=== PATIENT | male | born 1950 | race Caucasian/White ===

== ENCOUNTER → 2023-08-13 12:11 | Outpatient (CLI) | payer OTHER, SELFPAY ==
--- NOTE | 2023-08-13 | DI.ECHO.S_ITS ---
[place]---------+ [facility] +---------+ : : [address] : : : : [id number] : : : : Phone: [phone]---------+ Echocardiogram Report + + :Name: EMIL FULLER Study Date: 08/13/2023 Height: 70 in : :[facility] ReadingLocation: Weight: 250 lb : : Gender: Male BSA: 2.3 m2 : :: 1950 Age: 73 yrs BP: 181/96 mmHg: :Reason For Study: General Screening : :Ordering Physician: Ivan, : :Willie Performed By: Audelia Robledo : :Referring: Willie Love : + + Interpretation Summary The study quality was technically difficult. The left ventricle is normal in size. The left ventricular ejection fraction is normal. The ejection fraction is estimated to be 65-70%. The right ventricular cavity is small. The right ventricular systolic function is normal. There is mild mitral regurgitation. There is mild aortic regurgitation. There is mild tricuspid regurgitation. The right ventricular systolic pressure is estimated to be at least 35 mmHg based on an estimated right atrial pressure of 3 mm Hg. The ascending aorta is mildly enlarged. BP: 181/96 mmHg Procedure: A two-dimensional transthoracic echocardiogram with color flow and Doppler was performed. The study quality was technically difficult. Most of the acoustic windows were suboptimal, but the best imaging was obtained from the apical window. The patient was in normal sinus rhythm during the exam. Left Ventricle: The left ventricle is normal in size. Proximal septal thickening is noted. There is no echo evidence for significant left ventricular outflow tract obstruction. There is no thrombus. The ejection fraction is estimated to be 65-70%. The left ventricular ejection fraction is normal. There are no focal wall motion abnormalities. MV E/A: 0.69 Med Peak E' Christos: 6.3 cm/sec E/E' med: 16.6. Right Ventricle: The right ventricular cavity is small. The right ventricular systolic function is normal. Atria: The left atrial size is normal. Right atrial size is normal. There is no Doppler evidence for an interatrial shunt. Mitral Valve: There is mild to moderate mitral annular calcification. Redundant elongated chordae are noted. There is mild mitral regurgitation. Aortic Valve: The aortic valve is not well visualized. There is mild aortic valve sclerosis. There is no aortic valve stenosis. There is mild aortic regurgitation. Tricuspid Valve: The tricuspid valve is normal. There is no tricuspid stenosis. There is mild tricuspid regurgitation. The right ventricular systolic pressure is estimated to be at least 35 mmHg based on an estimated right atrial pressure of 3 mm Hg. Pulmonic Valve: The pulmonic valve is not well visualized. There is no pulmonic valvular stenosis. There is no pulmonic valvular regurgitation. Great Vessels: The aortic root is normal size. The ascending aorta is mildly enlarged. The pulmonary artery is normal size. The IVC is of normal diameter and collapses greater than 50% with a sniff. This suggests a low right atrial pressure of 3 mm Hg. Pericardium/ Pleura There is a trivial pericardial effusion noted. There is an anterior echo-free space consistent with a fat pad. There are no echocardiographic indications of cardiac tamponade. There is no pleural effusion. MMode/2D Measurements & Calculations LVIDd: 5.8 cm LVOT diam: 1.9 cm LVIDs: 4.6 cm Ao root diam: 3.8 cm FS: 20.7 % asc Aorta Diam: 4.2 cm IVSd: 1.0 cm LVPWd: 0.90 cm LV pablo. diameter/BSA (cm/m^2): 2.5 LV sys. diameter/BSA (cm/m^2): 2.0 LA A2 area: 21.2 cm2 RA long axis: 6.1 cm LA A4 area: 18.3 cm2 RA area: 15.4 cm2 LA length (vol): 6.1 cm RA vol: 33.1 ml LA vol: 54.4 ml RA : 14.4 ml/m2 LA vol index: 23.7 ml/m2 IVC diam: 2.0 cm RVD1 (basal): 2.7 cm LVLs ap4: 6.8 cm LVLd ap2: 7.4 cm TAPSE_phl: 2.9 cm LVLs ap2: 6.5 cm Doppler Measurements & Calculations Ao V2 max: 166.0 cm/sec LVOT Max Christos: 136.3 cm/sec Ao V2 mean: 114.6 cm/sec LV V1 max P.4 mmHg Ao max P.0 mmHg LV V1 VTI: 27.5 cm Ao mean P.0 mmHg CHUY(I,D): 2.4 cm2 Ao V2 VTI: 32.1 cm CHUY(V,D): 2.3 cm2 sev ratio: 0.86 CHUY indexed to BSA (cm^2/m^2): 1.1 MV E max christos: 105.0 cm/sec TR max christos: 281.0 cm/sec MV A max christos: 152.0 cm/sec TR max P.6 mmHg MV E/A: 0.69 PA V2 max: 124.0 cm/sec Med Peak E' Christos: 6.3 cm/sec PA V2 mean: 85.3 cm/sec E/E' med: 16.6 PA mean P.0 mmHg Lat Peak E' Christos: 7.0 cm/sec PA pr(Accel): 29.0 mmHg E/E' lat: 15.0 E/e' average: 15.8 MV dec time: 0.19 sec SV(LVOT): 77.9 ml AV VR_phl: 0.82 CHUY(VTI)/BSA_phl: 1.1 Reading Physician:03:48 PM
== END ==
DX: I08.3 Combined rheumatic disorders of mitral, aortic and tricuspid valves (principal); I77.89 Other specified disorders of arteries and arterioles
CPT/HCPCS: 93306